=== PATIENT | male | born 1955 | race Caucasian/White ===

== ENCOUNTER 2023-09-11 11:09 | Inpatient (IN) ==
[2023-09-11] MEDS: SODIUM CHLORIDE 0.9% 1,000 ML IV SCH (13:04)
[2023-09-11 13:21] LABS: Albumin Globulin Ratio 1.4 (0.9-2); Albumin Level 4.1 gm/dl (3.4-5.0); BUN Creatinine Ratio 20.2 (10-20); Bilirubin,Total 1.2 mg/dl (0.2-1.0); Calcium 9.5 mg/dl (8.6-10.3); Creatinine Clr Calc Pharmacy 44.6 ml/min; Est GFR (African American) 97.5 ml/min; Est GFR (Non-African American) 84.2 ml/min; Globulin 2.9 gm/dl (2.5-4.0); Magnesium 2.3 mg/dl (1.7-2.4); Potassium 4.1 mmol/L (3.5-5.1)
--- NOTE | 2023-09-11 13:28 | XRay Report ---
XR chest 1V portable CLINICAL HISTORY: cough TECHNIQUE: Single frontal radiograph of the chest was obtained. Comparison: Comparison is made to chest radiograph 08/03/2008 FINDINGS: No lines and tubes are seen. The cardiomediastinal silhouette is normal. The lungs are clear. No evid ence of pleural effusion or pneumothorax. IMPRESSION: No acute abnormalities and in particular no radiographic evidence of pneumonia. ACT 112: Negative or not required by law. Electronically signed by: Dmitry Chandler M.D. 09/11/2023 1:27 PM
[2023-09-11 13:35] LABS: Thyroid Stimulating Hormone 1.25 uIu/ml (0.300-4.500)
[2023-09-11] MEDS: OPTIRAY 320 125ml IV ONE (13:45)
[2023-09-11 13:52] LABS: INR 1.1 (0.9-1.1); Prothrombin Time 11.7 Seconds (9.0-12.0)
[2023-09-11 13:59] LABS: Hematocrit (blood only) 15.4 % (42.0-52.0); Hemoglobin 3.4 g/dl (14.0-18.0); Mean Corpuscular Hemoglobin 13.5 pg (25.0-34.0); Mean Corpuscular Hgb Conc 22.1 g/dL (32.0-36.0); Mean Corpuscular Volume 61.1 fL (80.0-100.0); Mean Platelet Volume 9.2 fL (9.4-12.4); Nucleated RBC # (auto) 0.04 K/uL (0.00-0.12); Nucleated RBC % (auto) 1.2 %; Platelet Count 357 K/uL (130-400); RDW Coefficient of Variation 25.4 % (11.5-14.5); RDW Standard Deviation 54.4 fL (36.4-46.3); Red Blood Count 2.52 M/uL (4.70-6.10); White Blood Count 3.43 K/ul (4.8-10.8)
[2023-09-11 14:00] LABS: Anisocytosis Present; Basophils # (auto) 0.01 K/uL (0.00-0.20); Basophils % (auto) 0.3 %; Eosinophils # (auto) 0.04 K/uL (0.00-0.50); Eosinophils % (auto) 1.2 %; Hypochromasia Present; Immature Granulocytes # (auto) 0.01 K/uL (0.01-0.20); Immature Granulocytes % (auto) 0.3 %; Lymphocytes # (auto) 0.57 K/uL (1.20-3.40); Lymphocytes % (auto) 16.6 %; Microcytosis Present; Monocytes # (auto) 0.45 K/uL (0.11-0.59); Monocytes % (auto) 13.1 %; Neutrophils # (auto) 2.35 K/uL (1.40-6.50); Neutrophils % (auto) 68.5 %; Polychromasia 1+; Tear Drop Cells 1+
--- NOTE | 2023-09-11 14:01 | Emergency Department Note ---
Impression & Plan Anemia, Left-sided weakness ED Provider Note ED Provider Note NAME: DIANN ROGER AGE:67 SEX: Male : 1955 ARRIVES VIA: EMS INFORMANT: Patient ED PROVIDER(s): Reta Alves DO CHIEF COMPLAINT: Weakness HPI: This is a 67-year-old male presents emergency department due to increased weakness over the last 2 days. Patient does have a prior history of a stroke which left him with chronic left-sided weakness. He states he occasionally has spasticity on the left side additionally but can usually still get to a standing position and slowly walk and rely on his left leg to help hold him although he does have difficulty moving it while using his walker. He denies any recent fevers, chills, or illness. He denies any recent change in medication. No recent trauma. He states in the last 2 days his left leg is felt increasingly weak as though it would not hold him up and he was concerned he may fall. Patient does have home nursing that comes to check on him and help him. Patient stated his stroke stemmed from a carotid dissection. He does not take any ASA or anticoagulation. PAST MEDICAL HISTORY:See Below PAST SURGICAL HISTORY:See Below FAMILY HISTORY:See Below SOCIAL HISTORY:See Below HOME MEDICATIONS:See Below ALLERGIES:See Below VITALS:See Below PHYSICAL EXAMINATION: GENERAL: alert, well appearing, well nourished, no distress, non-toxic EYE EXAM: normal conjunctiva, PERRL and EOM's grossly intact OROPHARYNX: no exudate, no erythema, lips, buccal mucosa, and tongue normal and mucous membranes are moist NECK: supple, no nuchal rigidity, no adenopathy, non-tender LUNGS: Clear to auscultation. Normal chest wall mechanics, no w/r/r HEART: no murmurs, S1 normal and S2 normal ABDOMEN: abdomen soft, non-tender, normo-active bowel sounds, no masses, no rebound or guarding. BACK: Back is symmetrical on inspection and there is no deformity, no midline tenderness, no CVA tenderness. SKIN: no rashes, petechiae, orbruising; pallor UPPER EXTREMITIES: upper extremities are grossly normal. FROM, nml pulses b/l. LUE decreased strength testing and atrophy, particularly of the hand which is held in flexion LOWER EXTREMITIES: No pitting edema. FROM, nml pulses b/l. LLE mild atrophy and decreased strength testing NEURO EXAM: Normal sensorium, cranial nerves II-XII grossly intact, normal speech, no facial droop,nogross weakness of arms, no gross weakness of legs. Gross sensation intact. No ataxia. Vital Signs: reviewed and remarkable Differential Diagnosis: dehydration, stroke, anemia, hypoglycemia, hyponatremia, hypernatremia, urinary tract infection, pneumonia, bronchitis, sepsis, gastroenteritis, additional abdominal pathology, metabolic abnormalities, as well as others were considered MEDICAL DECISION MAKING: This is a 67 yo male who presents to the ER due to concern for acute exacerbation of his chronic left sided weakness following a stroke. He was afebrile and VS stable and was asymptomatic laying down. Labs drawn and sent, IV established, EKG and CXR performed and interpreted at bedside, and patient placed on telemetry. Due to hx of CVA, he was sent for CT/CTA additionally. He was noted to have profound anemia. He denied noting blood from any source including no melena and does not take asa, plavix, or anticoagulation. No hx of GI bleed. He was given IV protonix, IVF, and after discussion at bedside, blood consent signed and 3 units ordered. Case discussed with the hospitalist team severity of anemia and need for further inpatient evaluation/mgmt. CT/CTA without any acute findings. No elevation of BUN and no abdominal pain on exam. Patient verbalized understanding of all results and was in agreement with the plan. Consultation(s): 1530: Discussed with Dr. Marshall, [facility] hospitalist team, for additional evaluation and management. ER Treatment Provided: See below 1420: Updated patient at bedside on lab results. He denies any prior history of anemia. Again denies any hemoptysis, hematemesis, melena or hematochezia, or hematuria. Denies any trauma or injuries recently. Denies any history of GERD, PUD, colitis, or IBD. He states he has previously had a blood transfusion following an elbow fracture and did fine. Blood consent form signed at bedside. Diagnostics Interpreted By Me: -ECG: Normal sinus at 70, leftward axis, normal intervals, no acute ST/T wave changes -Cardiac Monitoring: An order was placed for continuous cardiac monitoring. The monitor shows a rate of 80 with normal sinus rhythm. -Laboratory studies: As stated above and show below. -Imaging studies: X-ray Chest: A single view study of the chest was reviewed and was negative for cardiomegaly, focal infiltrate, effusion, pulmonary edema, or wide mediastinum. Triage Nursing Note Reviewed Prior/Outside Records Reviewed Critical Care: Critical care of 44 min performed to assess and manage high likelihood of life- threatening anemia, involving labs and imaging performed with assessment to evaluate anemia diagnosis with frequent reassessment. This time includes bedside time, treatment discussions with patient/family/consultants, documentation time and excludes procedure time. Past Med/Surg History Social History Smoking Status: Never smoker Hx Alcohol Use: Yes Hx Substance Use: No Preferred Language: Citizen Of [place] Communication Ability: Effective Manager Apple Required: No Beliefs That Will Affect Care: None Current Living Situation: Alone Current Living Situation Comment: Patient relates general concern about falls, does not express specifics. Other Information That Helps Us Care for You: No Feels Safe at Home: Yes Safety Concerns: Feels Safe At This Time Assistive Devices: Cane and Wheelchair Allergies Allergies Allergy/AdvReac Type Severity Reaction Status Date / Time No Known Allergies Allergy Unknown Verified 10/28/07 23:20 Home Meds Home Medications Medication Instructions Recorded Confirmed clonazepam 0.5 mg tablet 0.25 mg PO HS ##0 08/03/08 09/11/23 Results & Data (ED) Vital Signs Vital Signs - 24 hr 09/11/23 11:16 09/11/23 11:26 09/11/23 14:00 Temperature 37.1 C Temperature Source Oral Pulse Rate 69 71 Pulse Rate [Apical] 68 Pulse Rhythm Pulse Strength Respiratory Rate 20 20 Blood Pressure 109/63 Blood Pressure [Right Arm] 108/62 Blood Pressure Mean 78 Blood Pressure Mean [Right Arm] 77 Pulse Oximetry 98 98 Oxygen Delivery Method Room Air Room Air Sepsis Recent Fever Within 48 Hours No Sepsis New/Unexplained Change in Mental Status No Sepsis Action Taken by Nursing No Action Required 09/11/23 15:28 09/11/23 16:30 09/11/23 16:48 Temperature 37.2 C 37.3 C Temperature Source Oral Oral Pulse Rate 69 78 76 Pulse Rate [Apical] Pulse Rhythm Regular Pulse Strength Normal Respiratory Rate 20 18 Blood Pressure 99/62 L 109/56 L Blood Pressure [Right Arm] Blood Pressure Mean 74 73 Blood Pressure Mean [Right Arm] Pulse Oximetry 96 98 Oxygen Delivery Method Sepsis Recent Fever Within 48 Hours Sepsis New/Unexplained Change in Mental Status Sepsis Action Taken by Nursing 09/11/23 16:49 09/11/23 17:00 Temperature 37.1 C Temperature Source Oral Pulse Rate 72 70 Pulse Rate [Apical] Pulse Rhythm Pulse Strength Respiratory Rate 18 20 Blood Pressure 109/56 L 106/59 L Blood Pressure [Right Arm] Blood Pressure Mean 73 74 Blood Pressure Mean [Right Arm] Pulse Oximetry 98 99 Oxygen Delivery Method Sepsis Recent Fever Within 48 Hours Sepsis New/Unexplained Change in Mental Status Sepsis Action Taken by Nursing Laboratory Data 09/12/23 03:17 09/12/23 03:17 Lab Results 09/11/23 09/11/23 09/11/23 Range/Units 11:23 14:34 15:26 WBC 3.43 L (4.8-10.8) K/ul RBC 2.52 L (4.70-6.10) M/uL Hgb 3.4 L* (14.0-18.0) g/dl Hct 15.4 L* (42.0-52.0) % MCV 61.1 L (80.0-100.0) fL MCH 13.5 L (25.0-34.0) pg MCHC 22.1 L (32.0-36.0) g/dL RDW Std Deviation 54.4 H (36.4-46.3) fL RDW Coeff of Deborah 25.4 H (11.5-14.5) % Plt Count 357 (130-400) K/uL MPV 9.2 L (9.4-12.4) fL Immature Gran % (Auto) 0.3 % Neut % (Auto) 68.5 % Lymph % (Auto) 16.6 % Dauphin % (Auto) 13.1 % Eos % (Auto) 1.2 % Baso % (Auto) 0.3 % Reticulocyte % (Auto) 2.57 H (0.50-2.00) % Neut # (Auto) 2.35 (1.40-6.50) K/uL Lymph # (Auto) 0.57 L (1.20-3.40) K/uL Dauphin # (Auto) 0.45 (0.11-0.59) K/uL Eos # (Auto) 0.04 (0.00-0.50) K/uL Baso # (Auto) 0.01 (0.00-0.20) K/uL Reticulocyte # 0.060 (0.020-0.100) 10^6/uL Immature Gran # (Auto) 0.01 (0.01-0.20) K/uL Absolute Nucleated RBC 0.04 (0.00-0.12) K/uL Nucleated RBC % (auto) 1.2 % Polychromasia 1+ Hypochromasia Present Anisocytosis Present Microcytosis Present Tear Drop Cells 1+ PT 11.7 (9.0-12.0) Seconds INR 1.1 (0.9-1.1) Sodium 141 (136-145) mmol/L Potassium 4.1 (3.5-5.1) mmol/L Chloride 110 H (98-107) mmol/L Carbon Dioxide 26 (21-32) mmol/L Anion Gap 5 (3-11) BUN 19 (6-23) mg/dl Creatinine 0.94 (0.6-1.4) mg/dl Est Cr Clr Drug Dosing 44.6 ml/min Est GFR ( Amer) 97.5 ml/min Est GFR (Non-Af Amer) 84.2 ml/min BUN/Creatinine Ratio 20.2 H (10-20) Glucose 96 (70-99(Fasting)) mg/dl Calcium 9.5 (8.6-10.3) mg/dl Magnesium 2.3 (1.7-2.4) mg/dl Iron 16 L (35-175) mcg/dl TIBC 464 H (250-450) mcg/dl Unsaturated IBC 448 H (155-355) mcg/dl Transferrin % Sat 3 L (20-50) % Ferritin 7.3 L (8-388) ng/ml Total Bilirubin 1.2 H (0.2-1.0) mg/dl AST 28 (13-39) U/L ALT 14 (7-52) U/L Alkaline Phosphatase 59 (34-104) U/L Troponin I High Sens 15.0 (0-20) pg/ml Total Protein 7.0 (6.0-8.3) gm/dl Albumin 4.1 (3.4-5.0) gm/dl Globulin 2.9 (2.5-4.0) gm/dl Albumin/Globulin Ratio 1.4 (0.9-2) Lipase 20 (11-82) U/L Vitamin B12 215 (180-914) pg/ml Folate 15.45 (>5.38) ng/ml TSH 1.250 (0.300-4.500) uIu/ml Blood Type A Positive Blood Type Recheck A Positive Antibody Screen NEGATIVE Crossmatch See Detail Administered Medications Clonazepam (Clonazepam 0.5 Mg Tab) 0.25 mg PO HS JOVANA Stop: 10/11/23 20:59 Last Admin: 09/12/23 20:13 Dose: 0.25 mg Documented By: Admin: 09/11/23 20:05 Dose: 0.25 mg Documented By: BRENTON Pantoprazole Sodium 40 mg/ (Syringe) 10 mls @ 5 mls/min IV DAILY@1100 JOVANA Stop: 10/12/23 10:59 Last Admin: 09/12/23 10:58 Dose: 5 mls/min Documented By: GABRIEL Discontinued Medications Furosemide (Furosemide Inj 20 Mg/2 Ml Vial) 20 mg IV ONE ONE Stop: 09/11/23 21:01 Last Admin: 09/12/23 01:50 Dose: 20 mg Documented By: BRENTON Sodium Chloride (Nss) 1,000 mls @ 125 mls/hr IV .Q8H JOVANA Stop: 10/11/23 12:59 Last Infusion: 09/12/23 19:54 Dose: 0 mls/hr Documented By: Infusion: 09/12/23 11:23 Dose: 0 mls/hr Documented By: Admin: 09/12/23 04:34 Dose: Not Given Documented By: Admin: 09/12/23 01:25 Dose: Not Given Documented By: Infusion: 09/11/23 19:15 Dose: 0 mls/hr Documented By: Admin: 09/11/23 13:04 Dose: 125 mls/hr Documented By: GUILLERMINA Pantoprazole Sodium 40 mg/ (Syringe) 10 mls @ 5 mls/min IV NOW ONE Stop: 09/11/23 14:27 Last Admin: 09/11/23 15:52 Dose: 5 mls/min Documented By: GUILLERMINA Calcium Gluconate 1,000 mg/ (Sodium Chloride) 60 mls @ 240 mls/hr IV NOW ONE Stop: 09/11/23 21:14 Last Infusion: 09/12/23 02:04 Dose: Infused Documented By: Admin: 09/12/23 01:49 Dose: 240 mls/hr Documented By: BRENTON Ioversol (Optiray 320 125ml) 112 ml IV ONCE ONE Stop: 09/11/23 13:45 Last Admin: 09/11/23 13:45 Dose: 112 ml Documented By: ROHIT Imaging Data Radiologist's Impression: Chest X-Ray 09/11/23 12:49 XR chest 1V portable CLINICAL HISTORY: cough TECHNIQUE: Single frontal radiograph of the chest was obtained. Comparison: Comparison is made to chest radiograph 08/03/2008 FINDINGS: No lines and tubes are seen. The cardiomediastinal silhouette is normal. The lungs are clear. No evidence of pleural effusion or pneumothorax. IMPRESSION: No acute abnormalities and in particular no radiographic evidence of pneumonia. ACT 112: Negative or not required by law. Electronically signed by: Dmitry Chandler M.D. 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 CT angiography of the head was performed following intravenous administration of iodinated contrast. Coronal and sagittal MIPS were obtained from the axial data set and were submitted for review. Automated dose lowering techniques and/or adjustment according to patient size were utilized for this examination. All measurements were calculated based on NASCET criteria. Comparison: Comparison is made to CT head 08/03/2008 FINDINGS: CT head: Areas of decreased attenuation are present in the periventricular and subcortical white matter bilaterally consistent with small vessel ischemic disease. Generalized cerebral atrophy with commensurate enlargement of the ventricles, sulci, and cisterns is also present. There is no acute intracranial hemorrhage or evidence of acute territorial infarction. No shift of the midline structures, mass effect, or extra-axial abnormalities are shown. Atherosclerotic calcifications are present in the intracranial segments of the internal carotid arteries. Encephalomalacia in the right frontal lobe is again seen with ex vacuo ventriculomegaly. CTA Head: The anterior and posterior cerebral circulations are patent. No hemodynamically significant stenosis, aneurysm, dissection, or arteriovenous malformation is shown. Prominence and mild deformity of the origin of the basilar artery is likely congenital and without hemodynamically significant stenosis. IMPRESSION: 1. No acute intracranial hemorrhage, evidence of acute territorial infarction, or other acute intracranial disease process. Chronic encephalomalacia from prior stroke. 2. No occlusion, hemodynamically significant stenosis, aneurysm, dissection, or arteriovenous malformation in the major intracranial arteries. Assessment of stenosis of the internal carotid arteries is based on NASCET criteria. ACT 112: Negative or not required by law. Electronically signed by: Dmitry Chandler M.D. 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 CT angiography of the head was performed following intravenous administration of iodinated contrast. Coronal and sagittal MIPS were obtained from the axial data set and were submitted for review. Automated dose lowering techniques and/or adjustment according to patient size were utilized for this examination. All measurements were calculated based on NASCET criteria. Comparison: Comparison is made to CT head 08/03/2008 FINDINGS: CT head: Areas of decreased attenuation are present in the periventricular and subcortical white matter bilaterally consistent with small vessel ischemic disease. Generalized cerebral atrophy with commensurate enlargement of the ventricles, sulci, and cisterns is also present. There is no acute intracranial hemorrhage or evidence of acute territorial infarction. No shift of the midline structures, mass effect, or extra-axial abnormalities are shown. Atherosclerotic calcifications are present in the intracranial segments of the internal carotid arteries. Encephalomalacia in the right frontal lobe is again seen with ex vacuo ventriculomegaly. CTA Head: The anterior and posterior cerebral circulations are patent. No hemodynamically significant stenosis, aneurysm, dissection, or arteriovenous malformation is shown. Prominence and mild deformity of the origin of the basilar artery is likely congenital and without hemodynamically significant stenosis. IMPRESSION: 1. No acute intracranial hemorrhage, evidence of acute territorial infarction, or other acute intracranial disease process. Chronic encephalomalacia from prior stroke. 2. No occlusion, hemodynamically significant stenosis, aneurysm, dissection, or arteriovenous malformation in the major intracranial arteries. Assessment of stenosis of the internal carotid arteries is based on NASCET criteria. ACT 112: Negative or not required by law. Electronically signed by: Dmitry Chandler M.D. 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 Acute weakness with stroke like symptoms COMPARISON STUDY: CT head and CTA head of same day, head CT 08/03/2008, CTA neck 11/05/2007 TECHNIQUE: Following the IV administration of 112 mL of Optiray, CT angiogram of the neck was performed from the aortic arch to the skull base. Images are reviewed in the axial, sagittal, and coronal planes. 3-D MIPS images are created and assessed. IV contrast was administered without complication. All measurements were calculated based on NASCET criteria. A dose lowering technique was utilized adhering to the principles of ALARA. CT DOSE: 1165.08 mGy.cm FINDINGS: Three-vessel morphology of the thoracic aortic arch. There is patency of the innominate and imaged subclavian arteries. The bilateral common and left internal carotid arteries are patent. Unchanged appearance of the chronic long segment high-grade stenosis/near occlusion involving majority of the right ICA with distal reconstitution of flow. Large chronic right MCA infarct/encephalomalacia with Wallerian degeneration redemonstrated. The vertebral arteries are codominant and widely patent. The basilar artery is patent. Lung apices are clear. Unremarkable soft tissues. There is nonspecific circumferential wall thickening of the esophagus with adjacent inflammatory stranding adjacent subcentimeter periesophageal lymph nodes. Polypoid mucosal thickening of the right maxillary sinus. Sphenoid sinus air-fluid levels suggestive of acute sinusitis. IMPRESSION: 1. Stable exam compared to the 11/05/2007 study with chronic lung segment high- grade stenosis/near occlusion of the right internal carotid artery, possibly from a chronic dissection. 2. Partially imaged encephalomalacia related to a large chronic right MCA infarct. 3. Nonspecific wall thickening of the esophagus may represent esophagitis. ACT 112: Negative or not required by law. The above report was generated using voice recognition software. It may contain grammatical, syntax or spelling errors. Electronically signed by: Jhony Trevino M.D. 09/11/2023 2:09 PM Discharge Plan Visit Data Chief Complaint: Leg Weakness, Bilateral Stated Complaint: weakness ED Provider: Reta Alves Discharge Problem: Anemia, Left-sided weakness Patient Disposition: Admitted As Inpatient Discharge Instructions Interventions: ED Discharge Assessment Last Done: 09/11/23 18:13
[2023-09-11 14:02] LABS: Adenovirus PCR Not Detected (NotDetected); Bordetella parapertussis PCR Not Detected (NotDetected); Bordetella pertussis PCR Not Detected (NotDetected); Chlamydia pneumoniae PCR Not Detected (NotDetected); Coronavirus 229E PCR Not Detected (NotDetected); Coronavirus CoV-2 (COVID19)PCR Not Detected (NotDetected); Coronavirus HKU1 PCR Not Detected (NotDetected); Coronavirus NL63 PCR Not Detected (NotDetected); Coronavirus OC43PCR Not Detected (NotDetected); Human Metapneumovirus PCR Not Detected (NotDetected); Influenza A PCR Not Detected (NotDetected); Influenza B PCR Not Detected (NotDetected); Mycoplasma pneumoniae PCR Not Detected (NotDetected); Parainfluenza Virus 1 PCR Not Detected (NotDetected); Parainfluenza Virus 2 PCR Not Detected (NotDetected); Parainfluenza Virus 3 PCR Not Detected (NotDetected); Parainfluenza Virus 4 PCR Not Detected (NotDetected); Respiratory Syncytial VirusPCR Not Detected (NotDetected); Rhinovirus/Enterovirus PCR Not Detected (NotDetected)
--- NOTE | 2023-09-11 14:10 | CT Scan Report ---
CT angio neck with con CLINICAL HISTORY: 67 years-old Male with incr weakness, hx cva from carotid dissection. Acute weak ness with stroke like symptoms COMPARISON STUDY: CT head and CTA head of same day, head CT 08/03/2008, CTA neck 11/05/2007 TECHNIQUE: F ollowing the IV administration of 112 mL of Optiray, CT angiogram of the neck was performed from the aortic arch to the skull base. Images are reviewed in the axial, sagittal, and coronal planes. 3-D NE PS images are created and assessed. IV contrast was administered without complication. All measuremen ts were calculated based on NASCET criteria. A dose lowering technique was utilized adhering to the principles of ALARA. CT DOSE: 1165.08 mGy.cm FINDINGS: Three-vessel morphology of the thoracic aortic arch. There is patency of the innominate and imaged ybarra bclavian arteries. The bilateral common and left internal carotid arteries are patent. Unchanged appe arance of the chronic long segment high-grade stenosis/near occlusion involving majority of the right ICA with distal reconstitution of flow. Large chronic right MCA infarct/encephalomalacia with Rodríguez antonio degeneration redemonstrated. The vertebral arteries are codominant and widely patent. The basilar artery is patent. Lung apices are clear. Unremarkable soft tissues. There is nonspecific circumferential wall thickenin g of the esophagus with adjacent inflammatory stranding adjacent subcentimeter periesophageal lymph n odes. Polypoid mucosal thickening of the right maxillary sinus. Sphenoid sinus air-fluid levels sugge stive of acute sinusitis. IMPRESSION: 1. Stable exam compared to the 11/05/2007 study with chronic lung segment high-grade stenosis/near occl usion of the right internal carotid artery, possibly from a chronic dissection. 2. Partially imaged encephalomalacia related to a large chronic right MCA infarct. 3. Nonspecific wall thickening of the esophagus may represent esophagitis. ACT 112: Negative or not required by law. The above report was generated using voice recognition software. It may contain grammatical, syntax o r spelling errors. Electronically signed by: Jhony Trevino M.D. 09/11/2023 2:09 PM
--- NOTE | 2023-09-11 14:11 | CT Scan Report ---
CT angio head w con, CT head/brain wo con CLINICAL HISTORY: incr weakness, hx cva from carotid dissection TECHNIQUE: Contiguous axial CT images of the head were acquired from the base of the skull to the nitesh bakari without intravenous contrast administration. CT angiography of the head was performed following intravenous administration of iodinated contrast. Coronal and sagittal MIPS were obtained from the ax ial data set and were submitted for review. Automated dose lowering techniques and/or adjustment acc ording to patient size were utilized for this examination. All measurements were calculated based on NASCET criteria. Comparison: Comparison is made to CT head 08/03/2008 FINDINGS: CT head: Areas of decreased attenuation are present in the periventricular and subcortical white [place] er bilaterally consistent with small vessel ischemic disease. Generalized cerebral atrophy with comme nsurate enlargement of the ventricles, sulci, and cisterns is also present. There is no acute intracr anial hemorrhage or evidence of acute territorial infarction. No shift of the midline structures, mas s effect, or extra-axial abnormalities are shown. Atherosclerotic calcifications are present in the intracranial segments of the internal carotid arteries. Encephalomalacia in the right frontal lobe is again seen with ex vacuo ventriculomegaly. CTA Head: The anterior and posterior cerebral circulations are patent. No hemodynamically significan t stenosis, aneurysm, dissection, or arteriovenous malformation is shown. Prominence and mild deformi ty of the origin of the basilar artery is likely congenital and without hemodynamically significant s tenosis. IMPRESSION: 1. No acute intracranial hemorrhage, evidence of acute territorial infarction, or other acute intrac ranial disease process. Chronic encephalomalacia from prior stroke. 2. No occlusion, hemodynamically significant stenosis, aneurysm, dissection, or arteriovenous malfor mation in the major intracranial arteries. Assessment of stenosis of the internal carotid arteries is based on NASCET criteria. ACT 112: Negative or not required by law. Electronically signed by: Dmitry Chandler M.D. 09/11/2023 2:10 PM
[2023-09-11] MEDS ORDERED: SODIUM CHLORIDE 0.9% 250 ML IV PRN (14:26)
--- NOTE | 2023-09-11 15:23 | History & Physical Report ---
Date of Service September 11, 2023 Assessment & Plan (1) Iron deficiency anemia: Plan: Generalized weakness and lightheadedness/chest palpitation with standing, with an acute worsening x 2 days Hgb 3.4 and Hct 15.4 on arrival Denies recent falls, trauma, blood in the urine or stool, or melena No signs of active bleeding on clinical exam Patient reports he is asymptomatic at rest, which likely indicates a gradual decline over time Hx of blood transfusion in 2018 Iron panel revealed severe WILVER: Ferritin 7.3, TIBC 464 3u pRBCS ordered/transfused in the ED Trend H&H q4h; first H&H to be drawn 30-40 minutes after the second blood transfusion Monitor for signs of TACO/TRALI such as increased oxygen demands or respiratory distress Will plan to give Lasix 20 mg IV after third unit transfused Will plan to give calcium gluconate 1 g IV Communicated with nursing staff Recommend Venofer infusion on a day that blood is not given While low suspicion for GI bleed, will continue Protonix 40 mg IV QAM for now A.m. CBC, BMP (2) Generalized weakness: Plan: Secondary to #1 PT/OT consulted; Left-side nonweightbearing (3) Hx of stroke without residual deficits: Plan: In 2007 Left-sided hemiparesis Head/neck imaging with no acute finding (large chronic right MCA infarct) No BP, IV, labs in the LUE (4) Leukocytopenia: Plan: Mild; WBC count 3.43 on arrival Recheck a.m. labs Plan Disposition: Admit to PCU telemetry DNR/DNI Gluten-free diet VTE PPx: SCDs History of Present Illness Chief Complaint: Increased fatigue, bilateral leg weakness Primary Care Provider: Zeb White MD Austin is a 67yo male with PMH of left-sided CVA. He presented for increased generalized weakness, lightheadedness, chest palpitations with standing, and difficulty with ambulation on 09/10. Symptoms have been worsening x 2 days. He does report that 2 days ago, while standing from the toilet, he had to sit back down repeatedly; he then lowered himself to the floor, and called a friend who brought him to the bed. No head strike. No LOC. Patient reported that he was having difficulty moving. He is also noted that recently when standing, he would have "spastic attacks" with heart palpitations and feeling like his body was becoming overheated. Patient's not currently on blood thinners. Only medication is clonazepam 0.25 mg at night. He denies any recent falls, trauma, or injuries. He denies blood in the urine or stool, or dark tarry stools. He does have a history of a stroke 16 years ago (on October 27, 2007) that left residual left-sided paralysis/weakness. Currently has home health care. He denies any new stroke symptoms such as slurred speech or facial droop. He does have a history of blood transfusions, with the last being in 2018 when he shattered his left elbow. He denies smoking, alcohol use, and tobacco use. 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 Vital stable at time admission. ED course: 3u pRBCs ordered, pending ROS: Patient endorses lightheadedness with rest, dizziness with standing, on-going L- sided body pain since stroke, chest palpitations when attempting to stand/walk Patient denies fever, chills, night-sweats, fainting, chest pain, SOB, cough, new stroke symptoms (such as facial droop or slurred speech), abdominal pain, N/V/D, changes in urinary / bowel habits, blood in urine/stool, melena, or new pain/N/T in arms or legs. Allergies Allergy/AdvReac Type Severity Reaction Status Date / Time No Known Allergies Allergy Unknown Verified 10/28/07 23:20 Home Medications Medication Instructions Recorded Confirmed Type clonazepam 0.5 mg tablet 0.25 mg PO ##0 08/03/08 09/11/23 History Past Med/Surg History Social History Smoking Status: Never smoker Preferred Language: [place] Feels Safe at Home: Yes Review of Systems Review of Systems: See HPI above Physical Exam Physical Exam: General: no acute distress; pleasant affect; well-spoken; non-toxic appearing; thin; cooperative; 90% on RA HEENT: normocephalic, atraumatic; no scleral icterus; PERRLA w/ EOMs intact; moist mucus membrane; vision and hearing grossly intact Neck: supple; no lymphadenopathy; trachea midline Skin: Significant pallor; no signs of bruising or active bleeding on clinical exam; warm, dry without signs of tenting; no cyanosis; no rashes, bruising, lesions, or erythema noted CV: chest wall NTP; RRR; S1/S2 normal; no murmurs/rubs/gallops; bounding pulses intact and symmetric at radial, DP, and PT Lungs: no acute respiratory distress; symmetrical chest wall expansion; clear breath sounds across all lung saab w/o adventitious sounds; no wheezing ABD: Soft, NTP; BS present; no rebound/guarding; no distention MSK: Left-sided upper and lower body paralysis; atrophy of muscles on the left side; no tics or fasciculations; no edema noted in the LEs b/l, nonerythematous Neuro: A&Ox3; normal mood and affect; fluent speech; no focal deficits; sensation grossly intact in the face bilaterally, no sensation in the left arm or leg Results & Data Results & Data Vital Signs (Past 12 Hours) Vital Signs Temp Pulse Pulse Resp BP BP Pulse Ox 09/11/23 14:00 68 20 108/62 98 09/11/23 11:26 37.1 C 71 20 109/63 98 09/11/23 11:16 69 O2 Del Method 09/11/23 14:00 Room Air 09/11/23 11:26 Room Air 09/11/23 11:16 Laboratory Results Abnormal lab results 09/11/23 09/11/23 Range/Units 11:23 14:34 WBC 3.43 L (4.8-10.8) K/ul RBC 2.52 L (4.70-6.10) M/uL Hgb 3.4 L* (14.0-18.0) g/dl Hct 15.4 L* (42.0-52.0) % MCV 61.1 L (80.0-100.0) fL MCH 13.5 L (25.0-34.0) pg MCHC 22.1 L (32.0-36.0) g/dL RDW Std Deviation 54.4 H (36.4-46.3) fL RDW Coeff of Deborah 25.4 H (11.5-14.5) % MPV 9.2 L (9.4-12.4) fL Lymph # (Auto) 0.57 L (1.20-3.40) K/uL Chloride 110 H (98-107) mmol/L BUN/Creatinine Ratio 20.2 H (10-20) Total Bilirubin 1.2 H (0.2-1.0) mg/dl Crossmatch See Detail Diagnostic Findings Chest X-Ray 09/11/23 12:49 XR chest 1V portable CLINICAL HISTORY: cough TECHNIQUE: Single frontal radiograph of the chest was obtained. Comparison: Comparison is made to chest radiograph 08/03/2008 FINDINGS: No lines and tubes are seen. The cardiomediastinal silhouette is normal. The lungs are clear. No evidence of pleural effusion or pneumothorax. IMPRESSION: No acute abnormalities and in particular no radiographic evidence of pneumonia. ACT 112: Negative or not required by law. Electronically signed by: Dmitry Chandler M.D. 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 CT angiography of the head was performed following intravenous administration of iodinated contrast. Coronal and sagittal MIPS were obtained from the axial data set and were submitted for review. Automated dose lowering techniques and/or adjustment according to patient size were utilized for this examination. All measurements were calculated based on NASCET criteria. Comparison: Comparison is made to CT head 08/03/2008 FINDINGS: CT head: Areas of decreased attenuation are present in the periventricular and subcortical white matter bilaterally consistent with small vessel ischemic disease. Generalized cerebral atrophy with commensurate enlargement of the ventricles, sulci, and cisterns is also present. There is no acute intracranial hemorrhage or evidence of acute territorial infarction. No shift of the midline structures, mass effect, or extra-axial abnormalities are shown. Atherosclerotic calcifications are present in the intracranial segments of the internal carotid arteries. Encephalomalacia in the right frontal lobe is again seen with ex vacuo ventriculomegaly. CTA Head: The anterior and posterior cerebral circulations are patent. No hemodynamically significant stenosis, aneurysm, dissection, or arteriovenous malformation is shown. Prominence and mild deformity of the origin of the basilar artery is likely congenital and without hemodynamically significant stenosis. IMPRESSION: 1. No acute intracranial hemorrhage, evidence of acute territorial infarction, or other acute intracranial disease process. Chronic encephalomalacia from prior stroke. 2. No occlusion, hemodynamically significant stenosis, aneurysm, dissection, or arteriovenous malformation in the major intracranial arteries. Assessment of stenosis of the internal carotid arteries is based on NASCET criteria. ACT 112: Negative or not required by law. Electronically signed by: Dmitry Chandler M.D. 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 CT angiography of the head was performed following intravenous administration of io dinated contrast. Coronal and sagittal MIPS were obtained from the axial data set and were submitted for review. Automated dose lowering techniques and/or adjustment according to patient size were utilized for this examination. All measurements were calculated based on NASCET criteria. Comparison: Comparison is made to CT head 08/03/2008 FINDINGS: CT head: Areas of decreased attenuation are present in the periventricular and subcortical white matter bilaterally consistent with small vessel ischemic disease. Generalized cerebral atrophy with commensurate enlargement of the ventricles, sulci, and cisterns is also present. There is no acute intracranial hemorrhage or evidence of acute territorial infarction. No shift of the midline structures, mass effect, or extra-axial abnormalities are shown. Atherosclerotic calcifications are present in the intracranial segments of the internal carotid arteries. Encephalomalacia in the right frontal lobe is again seen with ex vacuo ventriculomegaly. CTA Head: The anterior and posterior cerebral circulations are patent. No hemodynamically significant stenosis, aneurysm, dissection, or arteriovenous malformation is shown. Prominence and mild deformity of the origin of the basilar artery is likely congenital and without hemodynamically significant stenosis. IMPRESSION: 1. No acute intracranial hemorrhage, evidence of acute territorial infarction, or other acute intracranial disease process. Chronic encephalomalacia from prior stroke. 2. No occlusion, hemodynamically significant stenosis, aneurysm, dissection, or arteriovenous malformation in the major intracranial arteries. Assessment of stenosis of the internal carotid arteries is based on NASCET criteria. ACT 112: Negative or not required by law. Electronically signed by: Dmitry Chandler M.D. 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 Acute weakness with stroke like symptoms COMPARISON STUDY: CT head and CTA head of same day, head CT 08/03/2008, CTA neck 11/05/2007 TECHNIQUE: Following the IV administration of 112 mL of Optiray, CT angiogram of the neck was performed from the aortic arch to the skull base. Images are reviewed in the axial, sagittal, and coronal planes. 3-D MIPS images are created and assessed. IV contrast was administered without complication. All measurements were calculated based on NASCET criteria. A dose lowering technique was utilized adhering to the principles of ALARA. CT DOSE: 1165.08 mGy.cm FINDINGS: Three-vessel morphology of the thoracic aortic arch. There is patency of the innominate and imaged subclavian arteries. The bilateral common and left internal carotid arteries are patent. Unchanged appearance of the chronic long segment high-grade stenosis/near occlusion involving majority of the right ICA with distal reconstitution of flow. Large chronic right MCA infarct /encephalomalacia with Wallerian degeneration redemonstrated. The vertebral arteries are codominant and widely patent. The basilar artery is patent. Lung apices are clear. Unremarkable soft tissues. There is nonspecific circumferential wall thickening of the esophagus with adjacent inflammatory stranding adjacent subcentimeter periesophageal lymph nodes. Polypoid mucosal thickening of the right maxillary sinus. Sphenoid sinus air-fluid levels suggestive of acute sinusitis. IMPRESSION: 1. Stable exam compared to the 11/05/2007 study with chronic lung segment high- grade stenosis/near occlusion of the right internal carotid artery, possibly from a chronic dissection. 2. Partially imaged encephalomalacia related to a large chronic right MCA infarct. 3. Nonspecific wall thickening of the esophagus may represent esophagitis. ACT 112: Negative or not required by law. The above report was generated using voice recognition software. It may contain grammatical, syntax or spelling errors. Electronically signed by: Jhony Trevino M.D. 09/11/2023 2:09 PM ECG Additional Comments: EKG revealed NSR at 70 bpm; QTc 438 Code Status & VTE Plan Code Status DNR/DNI VTE Prophylaxis Plan VTE Prophylaxis will be ordered: Yes Supervising Physician Co-Signing Physician Notes Patient seen and examined, chart reviewed, case discussed with Clement Mix and I agree with the assessment and plan as above except as otherwise noted Labs and images reviewed Austin is a 67-year-old male with a past medical history of carotid dissection and CVA with residual left-sided deficits stable for the last 16 years who presents with increased weakness and exertional fatigue and was having trouble standing due to global weakness. He denies melena, hematochezia, hematemesis. Is not elevated and he has no history of GI bleeding. His hemoglobin on admission is 3.4. As he is minimally symptomatic and not tachycardic despite a hemoglobin of 3.4, this is all certainly chronic with downtrend over many weeks to months. He is profoundly macrocytic with an MCV of 61, is also leukopenic at 3.43. Platelet count is normal.At bedside has severe pallor. HR regular. Normotensive on arrival, borderline hypotensive on reassessment. No lightheadedness/dizziness. No chest pain. Chronic LUE/LLE strength and sensation deficits present. Austin presents with symptomatic anemia likely from chronic downtrend in hemoglobin. Patient will need colorectal cancer screening. Differential includes increased losses due to occult cancer/bleeding, production failure in the setting of bicytopenia, and nutritional deficiency/iron deficiency. Iron panel with transferrin saturation and ferritin are pending, B12/folate pending. Reticulocyte count pending. Patient has been ordered 3 units for transfusion with a estimated rise to approximately 6.4 posttransfusion. Recommend giving Lasix 20 mg after the first 2 units to lower risk of transfusion associated cardiopulmonary overload, in addition to 1 g of calcium gluconate. Follow H&H posttransfusion, and then trend every 6 hours for stability. Transfuse for h emoglobin less than 7 or acute symptoms. Labs consistent with severe iron deficiency. PT had been on vegetarian diet previously as well. pursue 300 mg x 3 course of Venofer however would not prescribe this on the same day that blood is being given. PPI has been given for some GERD like symptoms, although and absent of clinical bleeding send with normal BUN and again very stable heart rate and minimal symptoms despite hemoglobin of 3 low suspicion for acute upper GI bleed . will continue daily stress ppx, BID dosing not indicated. admitted to telemetry for monitoring due to profound anemia. Agree with assessment and management above. PG Care Time/CCT Total # of Minutes Spent Total Time Spent with Patient: Total time spent is greater than 50% in coordination of care (as documented) at patient's floor/unit and/or counseling patient: Coding [place] [address] INT INP/OBS CARE MIN Patient Type Established Medical Decision Making Moderate Complexity Diagnoses Iron deficiency anemia D50.9 Generalized weakness R53.1 Hx of stroke without residual deficits Z86.73 Leukocytopenia D72.819
[2023-09-11] MEDS: PANTOprazole 40 MG in SYRINGE 0 ML IV ONE (15:52)
[2023-09-11 15:54] LABS: Reticulocyte % 2.57 % (0.50-2.00)
[2023-09-11 16:19] LABS: Ferritin 7.3 ng/ml (8-388)
[2023-09-11 16:29] LABS: Folate (Folic Acid),Ser orPlas 15.45 ng/ml (>5.38)
[2023-09-11 17:20] LABS: Appearance Urine Clear (Clear); Bilirubin Urine Negative (Negative); Blood Urine Negative (Negative); Color Urine Yellow; Glucose Urine UA Negative (Negative); Ketones Urine Negative (Negative); Leukocyte Esterase Urine Negative (Negative); Nitrite Urine Negative (Negative); Protein Urine Negative (Negative); Specific Gravity Urine 1.026 (1.000-1.030); Urobilinogen Urine Negative (Negative); pH Urine 5.5 (4.5-7.5)
[2023-09-11] MEDS ORDERED: STAT IV/IM STA (18:43)
[2023-09-11] MEDS ORDERED: ACETAMINOPHEN 325 MG TAB PO PRN (18:43)
[2023-09-11] MEDS: clonazePAM 0.5 MG TAB PO SCH (20:05)
[2023-09-11 22:51] LABS: Hematocrit (blood only) 20.2 % (42.0-52.0); Hemoglobin 5.3 g/dl (14.0-18.0)
[2023-09-12] MEDS: CALCIUM GLUCONATE 10% 1,000 MG in SODIUM CHLOR 0.9% MINI-B 50 ML IV ONE (01:49)
[2023-09-12] MEDS: FUROSEMIDE INJ 20 MG/2 ML VIAL IV ONE (01:50)
[2023-09-12 04:07] LABS: Hematocrit (blood only) 26.5 % (42.0-52.0); Hemoglobin 7.4 g/dl (14.0-18.0)
[2023-09-12 04:20] LABS: BUN Creatinine Ratio 15.3 (10-20); Calcium 9.5 mg/dl (8.6-10.3); Creatinine Clr Calc Pharmacy 53.6 ml/min; Est GFR (African American) 74.1 ml/min; Est GFR (Non-African American) 63.9 ml/min; Magnesium 2.2 mg/dl (1.7-2.4)
--- NOTE | 2023-09-12 05:53 | Electrocardiogram Report ---
Test Reason : Blood Pressure : / mmHG Vent. Rate : 070 BPM Atrial Rate : 070 BPM P-R Int : 144 ms QRS Dur : 076 ms QT Int : 406 ms P-R-T Axes : 046 -40 028 degrees QTc Int : 438 ms Normal sinus rhythm Left axis deviation Abnormal ECG When compared with ECG of 03-AUG-2008 14:10, No significant change was found Confirmed by Dov Pena [id number]) on 09/12/2023 5:53:37 AM Referred By: REFERRED SELF Confirmed By:Dov Pena
--- NOTE | 2023-09-12 07:48 | Hospitalist Progress Note ---
Date of Service September 12, 2023 Assessment & Plan (1) Iron deficiency anemia: Plan: Generalized weakness and lightheadedness/chest palpitation with standing, with an acute worsening x 2 days Hgb 3.4 and Hct 15.4 on arrival, s/p 3 units prbc, severely microcytic, iron confirmed low Approproate rise in hgb after transfusion Denies blood in the urine or stool, or melena No signs of active bleeding on clinical exam Patient has never had a colonoscopy in his life has no symptoms of dyspepsia or upper GI symptoms Hx of blood transfusion in 2018 he feels at that time he was also from dietary restrictions of iron intake Iron panel revealed severe WILVER: Ferritin 7.3, TIBC 464 low suspicion for GI bleed,continue Protonix 40 mg IV QAM PT/OT consulted; Left-side limited weightbearing from previous stroke (2) Hx of stroke without residual deficits: Plan: In 2007 Left-sided hemiparesis Head/neck imaging with no acute finding (large chronic right MCA infarct) No BP, IV, labs in the LUE pt is typically not on any antiplatelet agents or statins (3) Leukocytopenia: Plan: Mild; WBC count 3.43 on arrival Recheck a.m. labs Plan DNR/DNI Gluten-free diet VTE PPx: SCDs Admission and Anticipated Discharge Date Admission Date: September 11, 2023 Subjective pt feels improved after transfusion but not yet back to his baseline. He is concerned his left side is weaker than usual for him. I offered to do another image of his brain likely an MRI he did not wish to pursue this at this time as he feels this is mostly from his anemia He is a gluten-free diet person and typically eats mostly vegetarian foods and is markedly iron deficient which could be dietary. He also has never had a screening colonoscopy in his life but notes no new changes in bowel habits size color or consistency or darkness of stools Physical Exam Physical Exam: Pleasant gentleman with baseline left hemiparesis Card exam is regular lungs are clear Abdomen is without tenderness there are no masses. Results & Data Results & Data Vital Signs (Past 12 Hours) Vital Signs Temp Pulse Pulse Resp BP BP Pulse Ox 09/12/23 04:22 98.2 F 68 18 114/67 96 09/12/23 01:47 98.6 F 68 20 111/69 99 09/12/23 01:47 98.6 F 68 20 111/69 99 09/12/23 00:58 99.3 F 68 20 112/62 100 09/11/23 23:58 98.8 F 66 20 114/64 98 09/11/23 23:28 99.3 F 64 18 108/64 97 09/11/23 23:13 99.3 F 65 20 114/71 99 09/11/23 22:55 99.1 F 64 18 102/54 L 97 09/11/23 22:00 67 09/11/23 21:37 99.0 F 68 18 100/59 L 95 09/11/23 21:11 99.1 F 69 18 103/52 L 97 09/11/23 20:11 99.3 F 74 18 103/64 96 O2 Del Method 09/12/23 04:22 Room Air 09/12/23 01:47 09/12/23 01:47 09/12/23 00:58 09/11/23 23:58 09/11/23 23:28 09/11/23 23:13 09/11/23 22:55 09/11/23 22:00 09/11/23 21:37 09/11/23 21:11 09/11/23 20:11 Laboratory Results Reviewed CBC reviewed chemistry PG Care Time/CCT Total # of Minutes Spent Total Time Spent with Patient: Total time spent is greater than 50% in coordination of care (as documented) at patient's floor/unit and/or counseling patient: Coding Level of Care Code 52547 SUB INP/OBS CARE 3/50MIN Diagnoses Iron deficiency anemia D50.9 Hx of stroke without residual deficits Z86.73 Leukocytopenia D72.819
[2023-09-12] MEDS: PANTOprazole 40 MG in SYRINGE 0 ML IV SCH (10:58)
[2023-09-13 08:25] LABS: BUN Creatinine Ratio 22.1 (10-20); Calcium 9.3 mg/dl (8.6-10.3); Creatinine Clr Calc Pharmacy 72.9 ml/min; Est GFR (African American) 104.7 ml/min; Est GFR (Non-African American) 90.4 ml/min; Potassium 3.7 mmol/L (3.5-5.1)
[2023-09-13 09:08] LABS: Basophils # (auto) 0.03 K/uL (0.00-0.20); Basophils % (auto) 0.5 %; Eosinophils # (auto) 0.13 K/uL (0.00-0.50); Eosinophils % (auto) 2.2 %; Hematocrit (blood only) 28.6 % (42.0-52.0); Hemoglobin 7.9 g/dl (14.0-18.0); Immature Granulocytes # (auto) 0.02 K/uL (0.01-0.20); Immature Granulocytes % (auto) 0.3 %; Lymphocytes # (auto) 0.59 K/uL (1.20-3.40); Lymphocytes % (auto) 9.8 %; Mean Corpuscular Hemoglobin 19.8 pg (25.0-34.0); Mean Corpuscular Hgb Conc 27.6 g/dL (32.0-36.0); Mean Corpuscular Volume 71.7 fL (80.0-100.0); Monocytes # (auto) 0.51 K/uL (0.11-0.59); Monocytes % (auto) 8.5 %; Neutrophils # (auto) 4.75 K/uL (1.40-6.50); Neutrophils % (auto) 78.7 %; Nucleated RBC # (auto) 0.04 K/uL (0.00-0.12); Nucleated RBC % (auto) 0.7 %; Platelet Count 265 K/uL (130-400); Platelet Estimate Normal (Normal); Polychromasia 1+; RDW Coefficient of Variation 29.6 % (11.5-14.5); RDW Standard Deviation 75.2 fL (36.4-46.3); Red Blood Count 3.99 M/uL (4.70-6.10); White Blood Count 6.03 K/ul (4.8-10.8)
[2023-09-13] MEDS: THIAMINE HCL 200 MG in SODIUM CHLORIDE 0.9% 50 ML IV ONE (12:53)
[2023-09-13] MEDS: IRON SUCROSE 300 MG in SODIUM CHLORIDE 0.9% 250 ML IV ONE (12:58)
--- NOTE | 2023-09-13 15:50 | Hospitalist Progress Note ---
Date of Service September 13, 2023 Assessment & Plan (1) Iron deficiency anemia: Plan: Generalized weakness and lightheadedness/chest palpitation with standing, with an acute worsening x 2 days Hgb 3.4 and Hct 15.4 on arrival, s/p 3 units prbc, severely microcytic, iron confirmed low Approproate rise in hgb after transfusion , additional venofer given will check B1 but start supplementation in case this is bi deficiency, will add b6, recent b12 is normal No signs of active bleeding on clinical exam Patient has never had a colonoscopy in his life has no symptoms of dyspepsia or upper GI symptoms Hx of blood transfusion in 2018 he feels at that time he was also from dietary restrictions of iron intake Iron panel revealed severe WILVER: Ferritin 7.3, TIBC 464 low suspicion for GI bleed,continue Protonix 40 mg convert dose to po 09/13/23 PT/OT consulted; Left-side limited weightbearing from previous stroke (2) Hx of stroke without residual deficits: Plan: In 2007 Left-sided hemiparesis Head/neck imaging with no acute finding (large chronic right MCA infarct) No BP, IV, labs in the LUE pt is typically not on any antiplatelet agents or statins, not interested in taking these (3) Leukocytopenia: Plan: resolved Plan DNR/DNI Gluten-free diet VTE PPx: SCDs Admission and Anticipated Discharge Date Admission Date: September 11, 2023 Subjective pt feels improved after transfusion hgb has remained stable, left sided hemiparesis subjectively not yet back to his baseline. I filemonian offered to do another image of his brain he does not wish to pursue He is a gluten-free diet person and typically eats mostly vegetarian foods and is markedly iron deficient which could be dietary. He also has never had a screening colonoscopy in his life but notes no new changes in bowel habits size color or consistency or darkness of stools Physical Exam Physical Exam: Pleasant gentleman with baseline left hemiparesis Card exam is regular lungs are clear Abdomen is without tenderness there are no masses. Results & Data Results & Data Vital Signs (Past 12 Hours) Vital Signs Temp Pulse Pulse Resp BP Pulse Ox O2 Del Method 09/13/23 14:00 67 09/13/23 10:46 98.6 F 77 19 105/65 97 Room Air 09/13/23 07:59 98.1 F 68 19 118/85 96 Room Air 09/13/23 06:00 70 Laboratory Results review cbc review chemistry PG Care Time/CCT Total # of Minutes Spent Total Time Spent with Patient: Total time spent is greater than 50% in coordination of care (as documented) at patient's floor/unit and/or counseling patient: Coding Level of Care Code 28980 SUB INP/OBS CARE 3/50MIN Diagnoses Iron deficiency anemia D50.9 Hx of stroke without residual deficits Z86.73 Leukocytopenia D72.819
[2023-09-14 07:42] LABS: BUN Creatinine Ratio 27.1 (10-20); Calcium 8.8 mg/dl (8.6-10.3); Creatinine Clr Calc Pharmacy 91.2 ml/min; Est GFR (Non-African American) 98.3 ml/min; Potassium 3.7 mmol/L (3.5-5.1)
[2023-09-14 07:48] LABS: Hematocrit (blood only) 26.1 % (42.0-52.0); Mean Corpuscular Hemoglobin 19.8 pg (25.0-34.0); Mean Corpuscular Hgb Conc 26.8 g/dL (32.0-36.0); Mean Corpuscular Volume 73.7 fL (80.0-100.0); Nucleated RBC # (auto) 0.04 K/uL (0.00-0.12); Nucleated RBC % (auto) 0.7 %; Platelet Count 280 K/uL (130-400); RDW Coefficient of Variation 30.9 % (11.5-14.5); RDW Standard Deviation 77.8 fL (36.4-46.3); Red Blood Count 3.54 M/uL (4.70-6.10)
[2023-09-14] MEDS ORDERED: SODIUM CHLORIDE 0.9% 250 ML IV PRN (08:13)
[2023-09-14 08:19] LABS: Anisocytosis Present; Basophils # (auto) 0.04 K/uL (0.00-0.20); Basophils % (auto) 0.7 %; Eosinophils # (auto) 0.16 K/uL (0.00-0.50); Eosinophils % (auto) 2.9 %; Hypochromasia Present; Immature Granulocytes # (auto) 0.04 K/uL (0.01-0.20); Immature Granulocytes % (auto) 0.7 %; Lymphocytes # (auto) 0.57 K/uL (1.20-3.40); Lymphocytes % (auto) 10.2 %; Microcytosis Present; Monocytes # (auto) 0.63 K/uL (0.11-0.59); Monocytes % (auto) 11.3 %; Neutrophils # (auto) 4.16 K/uL (1.40-6.50); Neutrophils % (auto) 74.2 %; Polychromasia 2+; Schistocytes 1+; Tear Drop Cells 1+
[2023-09-14] MEDS: PYRIDOXINE HCL 50 MG TAB PO SCH (08:41)
[2023-09-14] MEDS: THIAMINE HCL 100 MG TAB PO SCH (08:42)
[2023-09-14] MEDS: PANTOprazole 40 MG TAB PO SCH (09:38)
[2023-09-14] MEDS: IRON SUCROSE 300 MG in SODIUM CHLORIDE 0.9% 250 ML IV ONE (09:41)
[2023-09-14 12:10] LABS: Hematocrit (blood only) 30.1 % (42.0-52.0); Hemoglobin 8.3 g/dl (14.0-18.0)
--- NOTE | 2023-09-14 15:10 | Hospitalist Progress Note ---
Date of Service September 14, 2023 Assessment & Plan (1) Iron deficiency anemia: Plan: He received 3 units packed red blood cells for admission hemoglobin 3.4 with subsequent improvement to 7.0. He then received another packed red blood cell today, September 13, and hemoglobin has improved to 8.3. Will follow. No overt melena or hematochezia. Fecal occult blood is pending. (2) Hx of stroke without residual deficits: Plan: Chronic left hemiparesis. OT and PT ordered. (3) Leukocytopenia: Plan: POA. Resolved Plan To be determined. OT and PT assessments requested Admission and Anticipated Discharge Date Admission Date: September 11, 2023 Subjective Alert and oriented. He received 3 units packed red blood cells for admission hemoglobin of 3.4. Hemoglobin improved to 7.0. He was given 1 additional unit today, September 13 and hemoglobin improved to 8.3. Fecal occult blood ordered and pending. Parenteral iron replacement underway. OT and PT assessments have been requested. Hopefully, he can go home tomorrow, September 14 Review of Systems 2 Review of Systems: Constitutional-no fever or chills ENT-no blurred vision, no double vision, no epistaxis, no sore throat Respiratory-no cough, no wheezing, no shortness of breath Cardiac-no palpitations, no chest pain, no syncope GI-no nausea, vomiting, diarrhea, melena, hematochezia -no urinary retention, no urinary incontinence, no dysuria, no hematuria Musculoskeletal-no joint pain, no muscle tenderness Skin-no bruising, no rashes, no pruritus Neuro-chronic left hemiparesis from old CVA. Psych-no depression, no anxiety. He seems to be poorly motivated to help himself Physical Exam 2 Physical Exam: General-alert and oriented x3, no fever, no chills HEENT-head atraumatic and normocephalic, pupils equal and reactive to light, extraocular muscles intact Neck-no lymphadenopathy or thyromegaly, trachea midline Chest-clear to auscultation. No rales, wheezing or rhonchi Cardiac-regular rate and rhythm, normal S1 and S2 Abdomen-normal bowel sounds, no hepatosplenomegaly Extremities-no cyanosis, clubbing, or edema Neuro-chronic left hemiparesis from old CVA. Cranial nerves appear to be intact Psych-flat affect. Poor motivation Results & Data Results & Data Vital Signs (Past 12 Hours) Vital Signs Temp Pulse Pulse Resp BP BP Pulse Ox 09/14/23 11:18 37.5 C 73 18 100/62 96 09/14/23 11:18 73 18 100/62 96 09/14/23 10:18 37.1 C 81 18 114/64 97 09/14/23 09:48 37.1 C 79 18 105/63 97 09/14/23 09:33 37.2 C 79 18 109/63 97 09/14/23 09:30 37.2 C 79 18 109/63 97 09/14/23 09:27 37.3 C 78 18 107/67 97 09/14/23 09:13 36.9 C 80 17 107/67 96 09/14/23 07:29 09/14/23 07:18 36.6 C 73 18 109/64 96 09/14/23 07:00 76 O2 Del Method 09/14/23 11:18 09/14/23 11:18 09/14/23 10:18 09/14/23 09:48 09/14/23 09:33 09/14/23 09:30 09/14/23 09:27 Room Air 09/14/23 09:13 09/14/23 07:29 Room Air 09/14/23 07:18 Room Air 09/14/23 07:00 Laboratory Results 09/14/23 11:46 09/14/23 06:40 PG Care Time/CCT Total # of Minutes Spent Total Time Spent with Patient: Total time spent is greater than 50% in coordination of care (as documented) at patient's floor/unit and/or counseling patient: Coding Level of Care Code 17715 SUB INP/OBS CARE 3/50MIN Diagnoses Iron deficiency anemia D50.9 Hx of stroke without residual deficits Z86.73 Leukocytopenia D72.819
[2023-09-15 08:03] LABS: Hematocrit (blood only) 27.2 % (42.0-52.0); Hemoglobin 7.8 g/dl (14.0-18.0); Mean Corpuscular Hemoglobin 21.3 pg (25.0-34.0); Mean Corpuscular Hgb Conc 28.7 g/dL (32.0-36.0); Mean Corpuscular Volume 74.1 fL (80.0-100.0); Mean Platelet Volume 9.4 fL (9.4-12.4); Nucleated RBC # (auto) 0.02 K/uL (0.00-0.12); Nucleated RBC % (auto) 0.3 %; Platelet Count 280 K/uL (130-400); RDW Coefficient of Variation 30.8 % (11.5-14.5); RDW Standard Deviation 78.6 fL (36.4-46.3); Red Blood Count 3.67 M/uL (4.70-6.10); White Blood Count 5.73 K/ul (4.8-10.8)
[2023-09-15 08:28] LABS: BUN Creatinine Ratio 27.4 (10-20); Calcium 9.1 mg/dl (8.6-10.3); Creatinine Clr Calc Pharmacy 87.4 ml/min; Est GFR (Non-African American) 96.7 ml/min; Potassium 3.8 mmol/L (3.5-5.1)
[2023-09-15 08:38] LABS: Anisocytosis Present; Basophils # (auto) 0.06 K/uL (0.00-0.20); Eosinophils # (auto) 0.15 K/uL (0.00-0.50); Eosinophils % (auto) 2.6 %; Hypochromasia Present; Immature Granulocytes # (auto) 0.06 K/uL (0.01-0.20); Lymphocytes # (auto) 0.75 K/uL (1.20-3.40); Lymphocytes % (auto) 13.1 %; Microcytosis Present; Monocytes % (auto) 10.5 %; Neutrophils # (auto) 4.11 K/uL (1.40-6.50); Neutrophils % (auto) 71.8 %; Polychromasia 1+; Tear Drop Cells 1+
--- NOTE | 2023-09-15 14:01 | Gastrointestinal Consultation ---
Date of Consultation September 15, 2023 Assessment & Plan (1) Iron deficiency anemia: -Liquid diet today -NPO after midnight -Colonoscopy on 09/15 -Continue to monitor H/H Supervising Physician Co-Signing Physician Notes Agree with RICHARD Menchaca as above Interviewed and examined patient, and agree with above Abd: Soft, NT, ND, +BS Clear liquid diet, NPO after midnight Colonoscopy in AM History of Present Illness Reason for Consultation: Anemia Attending Physician: Braxton Fields MD History of Present Illness Patient is a 67 yo male with PMH of stroke who is currently hospitalized with iron deficiency anemia. He had an initial hemoglobin of 3.4 and an iron level was found to be 16. His H/H is now 7.8/27.2. He does not have any changes in his bowel habits. He notes infrequent heartburn and reflux. He has never had a colonoscopy. No hematemesis, hematochezia, or melena. He offers no further GI complaints. No pertinent family history. No NSAIDs/anticoagulation. No recent abdominal imaging. No overt GI bleeding. 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 Other Information That Helps Us Care for You: No Feels Safe at Home: Yes Safety Concerns: Feels Safe At This Time Assistive Devices: Cane and Wheelchair Review of Systems Constitutional: + fatigue; no fever and no chills Respiratory: no cough and no dyspnea Cardiovascular: no chest pain Physical Exam Constitutional: well developed Respiratory: normal respiratory effort Cardiovascular: Rate/Rhythm: regular rate Gastrointestinal (Abdomen): normal bowel sounds, soft, nontender, no hepatosplenomegaly Results & Data Vital Signs (Past 12 Hours) Vital Signs Temp Pulse Resp BP Pulse Ox O2 Del Method 09/15/23 08:17 36.7 C 69 16 102/55 L 94 Room Air PG Care Time/CCT Total # of Minutes Spent Total Time Spent with Patient: Total time spent is greater than 50% in coordination of care (as documented) at patient's floor/unit and/or counseling patient: Coding Level of Care Code 86771 INT INP/OBS CARE 3/75MIN Diagnoses Iron deficiency anemia D50.9
--- NOTE | 2023-09-15 16:42 | Hospitalist Progress Note ---
Date of Service September 15, 2023 Assessment & Plan (1) Iron deficiency anemia: Plan: He received 4 units packed red blood cells for admission hemoglobin 3.4 with subsequent improvement to 7.8. No overt melena or hematochezia. pt to be considered for colonoscopy (2) Hx of stroke without residual deficits: Plan: Chronic left hemiparesis. OT and PT ordered. Pt does not want to consider rehab concern for his ability to return home as has issues with feeling some change in left hemiparesis (3) Leukocytopenia: Plan: POA. Resolved Plan To be determined. OT and PT assessments requested Admission and Anticipated Discharge Date Admission Date: September 11, 2023 Subjective pt has no complaints did have another unit of blood for a total of 4 units now in agreement of colonoscopy Gi consult to arrange Physical Exam Physical Exam: Pleasant continues with baseline left hemiparesis Card exam is regular lungs are clear Abdomen is without tenderness there are no masses. Results & Data Results & Data Vital Signs (Past 12 Hours) Vital Signs Temp Pulse Resp BP Pulse Ox O2 Del Method 09/15/23 15:03 98.2 F 73 16 100/57 L 93 Room Air 09/15/23 08:17 98.1 F 69 16 102/55 L 94 Room Air Laboratory Results review cbc review chemistry PG Care Time/CCT Total # of Minutes Spent Total Time Spent with Patient: Total time spent is greater than 50% in coordination of care (as documented) at patient's floor/unit and/or counseling patient: Coding Level of Care Code 67208 SUB INP/OBS CARE 2/35MIN Diagnoses Iron deficiency anemia D50.9 Hx of stroke without residual deficits Z86.73 Leukocytopenia D72.819
--- NOTE | 2023-09-16 06:59 | Anesthesiology Consultation ---
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 Alfredo Fuentes, Height/Weight Height: 5 ft 10 in Weight: 62.1 kg Allergies Allergy/AdvReac Type Severity Reaction Status Date / Time No Known Allergies Allergy Unknown Verified 10/28/07 23:20 Medications Home Medications Medication Instructions Recorded Confirmed Last Taken clonazepam 0.5 mg tablet 0.25 mg PO HS ##0 08/03/08 09/11/23 Unknown Active Medications Generic Name Dose Route Start Last Admin Trade Name Freq PRN Reason Stop Dose Admin Clonazepam 0.25 mg 09/11/23 21:00 09/15/23 21:24 Clonazepam 0.5 Mg Tab PO 10/11/23 20:59 0.25 mg HS JOVANA Administration Pantoprazole Sodium 40 mg 09/14/23 09:00 09/15/23 07:51 Pantoprazole 40 Mg Tab PO 10/14/23 08:59 40 mg QAM JOVANA Administration Pyridoxine HCl 50 mg 09/14/23 09:00 09/15/23 07:51 Pyridoxine Hcl 50 Mg Tab PO 10/14/23 08:59 50 mg QAM JOVANA Administration Thiamine HCl 100 mg 09/14/23 09:00 09/15/23 07:51 Thiamine Hcl 100 Mg Tab PO 10/14/23 08:59 100 mg QAM JOVANA Administration Social History Smoking Status: Never smoker Hx Alcohol Use: Yes alcohol intake frequency: holidays/special occasions only Hx Substance Use: No Physical Exam Vital Signs Last Vital Signs Temp 99.7 F H 09/15/23 20:54 Pulse 89 09/15/23 20:54 Resp 18 09/15/23 20:54 BP 106/58 L 09/15/23 20:54 Pulse Ox 96 09/15/23 20:54 O2 Del Method Room Air 09/15/23 21:30 Testing Laboratory Results 09/15/23 07:14 09/15/23 07:14 PT 11.7 Seconds (9.0-12.0) 09/11/23 11:23 INR 1.1 (0.9-1.1) 09/11/23 11:23 Urine Color Yellow 09/11/23 Unknown Urine Appearance Clear (Clear) 09/11/23 Unknown Urine pH 5.5 (4.5-7.5) 09/11/23 Unknown Ur Specific [place] 1.026 (1.000-1.030) 09/11/23 Unknown Urine Protein Negative (Negative) 09/11/23 Unknown Urine Glucose (UA) Negative (Negative) 09/11/23 Unknown Urine Ketones Negative (Negative) 09/11/23 Unknown Urine Nitrite Negative (Negative) 09/11/23 Unknown Ur Leukocyte Esterase Negative (Negative) 09/11/23 Unknown Blood Type A Positive 09/11/23 14:34 Antibody Screen NEGATIVE 09/11/23 14:34 Electrocardiogram Date: 09/11/23 Normal sinus rhythm, rate 70 bpm Left axis deviation Abnormal ECG When compared with ECG of 03-AUG-2008 14:10, No significant change was found Confirmed by Dov Pena ([id number]) on 09/12/2023 5:53:37 AM Chest X-Ray Date: 09/11/23 IMPRESSION: No acute abnormalities and in particular no radiographic evidence of pneumonia.
[2023-09-16] MEDS: LAVAGE SOLUTION 4000ML PO SCH (07:20)
[2023-09-16 07:42] LABS: BUN Creatinine Ratio 23.2 (10-20); Calcium 8.8 mg/dl (8.6-10.3); Creatinine Clr Calc Pharmacy 92.5 ml/min; Est GFR (African American) 114.7 ml/min; Est GFR (Non-African American) 98.9 ml/min; Potassium 3.8 mmol/L (3.5-5.1)
[2023-09-16 08:49] LABS: Hematocrit (blood only) 28.1 % (42.0-52.0); Hemoglobin 7.8 g/dl (14.0-18.0); Mean Corpuscular Hemoglobin 21.5 pg (25.0-34.0); Mean Corpuscular Hgb Conc 27.8 g/dL (32.0-36.0); Mean Corpuscular Volume 77.6 fL (80.0-100.0); Mean Platelet Volume 9.2 fL (9.4-12.4); Platelet Count 268 K/uL (130-400); RDW Coefficient of Variation 32.4 % (11.5-14.5); RDW Standard Deviation 84.1 fL (36.4-46.3); Red Blood Count 3.62 M/uL (4.70-6.10); White Blood Count 7.83 K/ul (4.8-10.8)
[2023-09-16 08:50] LABS: Anisocytosis Present; Basophils # (auto) 0.06 K/uL (0.00-0.20); Basophils % (auto) 0.8 %; Eosinophils # (auto) 0.15 K/uL (0.00-0.50); Eosinophils % (auto) 1.9 %; Hypochromasia Present; Immature Granulocytes # (auto) 0.05 K/uL (0.01-0.20); Immature Granulocytes % (auto) 0.6 %; Lymphocytes # (auto) 0.63 K/uL (1.20-3.40); Microcytosis Present; Monocytes # (auto) 0.61 K/uL (0.11-0.59); Monocytes % (auto) 7.8 %; Neutrophils # (auto) 6.33 K/uL (1.40-6.50); Neutrophils % (auto) 80.9 %; Polychromasia 1+
[2023-09-16] MEDS: SODIUM CHLORIDE 0.9% 500 ML IV SCH (08:50)
--- NOTE | 2023-09-16 09:10 | Communication Note ---
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 His colonoscopy is cancelled for today. At this point, would advise patient move forward with outpatient colonoscopy for further evaluation of his iron deficiency anemia so he can arrange this at a time he wishes to be compliant with bowel preparation. Hospitalists can consider a CT abdomen/pelvis with po & IV contrast to assess for significant abnormalities (obvious masses/lesions).
--- NOTE | 2023-09-16 17:30 | Hospitalist Progress Note ---
Date of Service September 16, 2023 Assessment & Plan (1) Iron deficiency anemia: Plan: He received 4 units packed red blood cells for admission hemoglobin 3.4 with subsequent improvement to 7.8. No overt melena or hematochezia. pt to be considered for colonoscopy however he refused colonoscopy preparation therefore colonoscopy was canceled at this time (2) Hx of stroke without residual deficits: Plan: Chronic left hemiparesis. OT and PT ordered feel he benefit from some rehab but does not want to consider this.. concern for his ability to return home as has issues with feeling some change in left hemiparesis (3) Leukocytopenia: Plan: POA. Resolved Plan To be determined. OT and PT assessments recommend rehab or at least home health once return home Admission and Anticipated Discharge Date Admission Date: September 11, 2023 Subjective pt has no complaints, patient refused colonoscopy prep overnight then during my visit he initially agreed to taking 80 in the evening of the but then to get GI he once again refused colonoscopy prep. GI medicine is now going to request he seek outpatient colonoscopy Patient has some persistent alteration in left-sided hemiplegia feels unsure to go home at this time. Physical Exam Physical Exam: Pleasant continues with baseline left hemiparesis Card exam is regular lungs are clear Abdomen is without tenderness there are no masses. Results & Data Results & Data Vital Signs (Past 12 Hours) Vital Signs Temp Pulse Resp BP Pulse Ox O2 Del Method 09/16/23 15:00 98.6 F 65 16 105/55 L 96 Room Air 09/16/23 07:45 97.7 F 73 16 107/61 96 Room Air PG Care Time/CCT Total # of Minutes Spent Total Time Spent with Patient: Total time spent is greater than 50% in coordination of care (as documented) at patient's floor/unit and/or counseling patient: Coding Level of Care Code 60121 SUB INP/OBS CARE 2/35MIN Diagnoses Iron deficiency anemia D50.9 Hx of stroke without residual deficits Z86.73 Leukocytopenia D72.819
[2023-09-17 09:44] LABS: Hematocrit (blood only) 31.1 % (42.0-52.0); Hemoglobin 8.5 g/dl (14.0-18.0); Mean Corpuscular Hemoglobin 21.7 pg (25.0-34.0); Mean Corpuscular Hgb Conc 27.3 g/dL (32.0-36.0); Mean Corpuscular Volume 79.5 fL (80.0-100.0); Mean Platelet Volume 9.4 fL (9.4-12.4); Platelet Count 272 K/uL (130-400); Red Blood Count 3.91 M/uL (4.70-6.10); White Blood Count 4.37 K/ul (4.8-10.8)
[2023-09-17 09:46] LABS: Calcium 9.1 mg/dl (8.6-10.3); Creatinine Clr Calc Pharmacy 102.9 ml/min; Est GFR (African American) 119.8 ml/min; Est GFR (Non-African American) 103.4 ml/min; Potassium 4.1 mmol/L (3.5-5.1)
[2023-09-17 10:24] LABS: Anisocytosis Present; Basophils # (auto) 0.05 K/uL (0.00-0.20); Basophils % (auto) 1.1 %; Eosinophils # (auto) 0.15 K/uL (0.00-0.50); Eosinophils % (auto) 3.4 %; Hypochromasia Present; Immature Granulocytes # (auto) 0.02 K/uL (0.01-0.20); Immature Granulocytes % (auto) 0.5 %; Lymphocytes # (auto) 0.53 K/uL (1.20-3.40); Lymphocytes % (auto) 12.1 %; Monocytes # (auto) 0.33 K/uL (0.11-0.59); Monocytes % (auto) 7.6 %; Neutrophils # (auto) 3.29 K/uL (1.40-6.50); Neutrophils % (auto) 75.3 %; Polychromasia 3+; Tear Drop Cells 1+
--- NOTE | 2023-09-17 17:52 | Hospitalist Progress Note ---
Date of Service September 17, 2023 Assessment & Plan (1) Iron deficiency anemia: Plan: He received 4 units packed red blood cells for admission hemoglobin 3.4 with subsequent improvement to 7.8. No overt melena or hematochezia. pt to be considered for colonoscopy however he refused colonoscopy preparation therefore colonoscopy was canceled at this time (2) Hx of stroke without residual deficits: Plan: Chronic left hemiparesis. OT and PT ordered feel he benefit from some rehab but does not want to consider this.. concern for his ability to return home as has issues with feeling some change in left hemiparesis consider rehab placement (3) Leukocytopenia: Plan: POA. Resolved Plan To be determined. OT and PT assessments recommend rehab Admission and Anticipated Discharge Date Admission Date: September 11, 2023 Subjective pt has no complaints, patient refused colonoscopy prep 09/16/23 GI medicine is now going to request he seek outpatient colonoscopy Patient has some persistent alteration in left-sided hemiplegia feels unsure to go home at this time. we discussed that he may need rehab is agreeable to seek consideration from [facility] Physical Exam Physical Exam: Pleasant continues with baseline left hemiparesis Card exam is regular lungs are clear Abdomen is without tenderness there are no masses. Results & Data Results & Data Vital Signs (Past 12 Hours) Vital Signs Temp Pulse Resp BP Pulse Ox O2 Del Method 09/17/23 14:15 98.4 F 78 16 102/61 94 Room Air 09/17/23 07:30 98.2 F 66 17 130/78 97 Room Air Laboratory Results review cbc review chemistry PG Care Time/CCT Total # of Minutes Spent Total Time Spent with Patient: Total time spent is greater than 50% in coordination of care (as documented) at patient's floor/unit and/or counseling patient: Coding Level of Care Code 80413 SUB INP/OBS CARE 2/35MIN Diagnoses Iron deficiency anemia D50.9 Hx of stroke without residual deficits Z86.73 Leukocytopenia D72.819
[2023-09-18 16:16] LABS: Hematocrit (blood only) 29.7 % (42.0-52.0); Hemoglobin 8.2 g/dl (14.0-18.0); Mean Corpuscular Hgb Conc 27.6 g/dL (32.0-36.0); Mean Corpuscular Volume 79.8 fL (80.0-100.0); Mean Platelet Volume 9.2 fL (9.4-12.4); Platelet Count 300 K/uL (130-400); Red Blood Count 3.72 M/uL (4.70-6.10); White Blood Count 6.85 K/ul (4.8-10.8)
--- NOTE | 2023-09-18 21:47 | Hospitalist Progress Note ---
Date of Service September 18, 2023 Assessment & Plan (1) Iron deficiency anemia: Plan: He received 4 units packed red blood cells for admission hemoglobin 3.4 with subsequent improvement to 7.8. No overt melena or hematochezia. pt to be considered for colonoscopy however he refused colonoscopy preparation therefore colonoscopy was canceled at this time (2) Hx of stroke without residual deficits: Plan: Chronic left hemiparesis. OT and PT ordered feel he benefit from some rehab but does not want to consider this.. concern for his ability to return home as has issues with feeling some change in left hemiparesis consider rehab placement Patient refused discharge on 09/17 due to his residual stroke symptoms but is agreeable to discharge on 09/18 reviewed his labs on 09/17 (3) Leukocytopenia: Plan: POA. Resolved Plan To be determined. OT and PT assessments recommend rehab Admission and Anticipated Discharge Date Admission Date: September 11, 2023 Subjective Patient reports no new symptoms. Review of Systems Review of Systems: All systems reviewed & are unremarkable except as noted in HPI & below Physical Exam Physical Exam: Pleasant continues with baseline left hemiparesis Card exam is regular lungs are clear Abdomen is without tenderness there are no masses. Results & Data Results & Data Vital Signs (Past 12 Hours) Vital Signs Temp Pulse Resp BP BP Pulse Ox O2 Del Method 09/18/23 21:20 37.2 C 85 16 102/51 L 95 Room Air 09/18/23 14:12 37.0 C 76 16 110/65 96 Room Air PG Care Time/CCT Total # of Minutes Spent Total Time Spent with Patient: Total time spent is greater than 50% in coordination of care (as documented) at patient's floor/unit and/or counseling patient: Coding Level of Care Code 72461 SUB INP/OBS CARE 2/35MIN Diagnoses Iron deficiency anemia D50.9 Hx of stroke without residual deficits Z86.73 Leukocytopenia D72.819
[2023-09-18] MEDS: IBUPROFEN 600 MG TAB PO ONE (23:31)
[2023-09-19 07:35] LABS: Hematocrit (blood only) 28.3 % (42.0-52.0); Mean Corpuscular Hemoglobin 22.4 pg (25.0-34.0); Mean Corpuscular Hgb Conc 28.3 g/dL (32.0-36.0); Mean Corpuscular Volume 79.3 fL (80.0-100.0); Mean Platelet Volume 9.6 fL (9.4-12.4); Platelet Count 284 K/uL (130-400); Red Blood Count 3.57 M/uL (4.70-6.10); White Blood Count 3.59 K/ul (4.8-10.8)
[2023-09-19 07:44] LABS: Albumin Level 3.2 gm/dl (3.4-5.0); BUN Creatinine Ratio 26.5 (10-20); Bilirubin Direct 0.1 mg/dl (0-0.2); Bilirubin,Total 0.5 mg/dl (0.2-1.0); Calcium 8.7 mg/dl (8.6-10.3); Creatinine Clr Calc Pharmacy 93.9 ml/min; Est GFR (African American) 115.3 ml/min; Est GFR (Non-African American) 99.5 ml/min; Potassium 3.9 mmol/L (3.5-5.1); Total Protein 5.7 gm/dl (6.0-8.3)
--- NOTE | 2023-09-19 10:32 | Discharge Summary ---
Date of Service September 19, 2023 Admission HPI Per Admitting Provider Austin is a 67yo male with PMH of left-sided CVA. He presented for increased generalized weakness, lightheadedness, chest palpitations with standing, and difficulty with ambulation on 09/10. Symptoms have been worsening x 2 days. He does report that 2 days ago, while standing from the toilet, he had to sit back down repeatedly; he then lowered himself to the floor, and called a friend who brought him to the bed. No head strike. No LOC. Patient reported that he was having difficulty moving. He is also noted that recently when standing, he would have "spastic attacks" with heart palpitations and feeling like his body was becoming overheated. Patient's not currently on blood thinners. Only medication is clonazepam 0.25 mg at night. He denies any recent falls, trauma, or injuries. He denies blood in the urine or stool, or dark tarry stools. He does have a history of a stroke 16 years ago (on October 27, 2007) that left residual left-sided paralysis/weakness. Currently has home health care. He denies any new stroke symptoms such as slurred speech or facial droop. He does have a history of blood transfusions, with the last being in 2018 when he shattered his left elbow. He denies smoking, alcohol use, and tobacco use. 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 Vital stable at time admission. ED course: 3u pRBCs ordered, pending ROS: Patient endorses lightheadedness with rest, dizziness with standing, on-going L- sided body pain since stroke, chest palpitations when attempting to stand/walk Patient denies fever, chills, night-sweats, fainting, chest pain, SOB, cough, new stroke symptoms (such as facial droop or slurred speech), abdominal pain, N/V/D, changes in urinary / bowel habits, blood in urine/stool, melena, or new pain/N/T in arms or legs. Principal Diagnosis iron def. anemia Discharge Exam Pleasant continues with baseline left hemiparesis Card exam is regular lungs are clear Abdomen is without tenderness there are no masses. Discharge Data Allergies Allergy/AdvReac Type Severity Reaction Status Date / Time No Known Allergies Allergy Unknown Verified 10/28/07 23:20 Consultations 09/15/23 13:47 Consult Gastroenterology Routine Procedures Performed Operation Date: 09/16/23 16:30 <No data on this case meets the specified criteria> Ordered Studies 09/11/23 12:49 CT angio head w con Stat CT angio neck with con Stat CT head/brain wo con Stat Hospital Course (1) Iron deficiency anemia: Patient was admitted with symptoms of anemi, likely GI source given iron studies compatibile with iron def. anemia. He received 4 units packed red blood cells for admission hemoglobin 3.4 with subsequent improvement to 7.8. No overt melena or hematochezia. pt to be considered for colonoscopy however he refused colonoscopy preparation therefore colonoscopy was canceled at this time will be discharged on supplemental iron. recommend rechecking blood count in about one week. Patient will be discharged to rehab. (2) Hx of stroke without residual deficits: Chronic left hemiparesis. OT and PT ordered feel he benefit from some rehab but does not want to consider this.. concern for his ability to return home as has issues with feeling some change in left hemiparesis consider rehab placement Patient refused discharge on 09/17 due to his residual stroke symptoms but is agreeable to discharge on 09/18 reviewed his labs on 09/17 (3) Leukocytopenia: POA. Resolved Total Time Total Time Spent Total Time Spent (In Minutes): 32 Discharge Plan Discharge Items Patient Disposition: Transfer Residential Fac Reason For Visit: GENERALIZED WEAKNESS Discharge Diagnosis: weakness Activity: Resume your previous activity Non-emergency contact: Primary Care Provider Call non-emergency contact if: you have any medication questions Follow-up/Referrals: Zeb White MD [Primary Care Provider] - Diet: Gluten Free Addtl Attending Provider Instructions: recommend followup with GI for outpatient colonoscopy. will recommend you continue on iron supplements: Friday and Friday. Friday and Friday. recommend rechecking hemoglobin in 5 days. Pending Studies at Discharge: No Stand-Alone Forms: My [email or web address] Skilled Items Patient informed of condition?: Yes DNR: No Discharge Level of Care: Skilled Communicable Disease: No Discharge Prognosis: Stable Lines: None Urinary Catheter: No Medications and DC Order Prescriptions: New pantoprazole 40 mg Tablet,Delayed Release (Dr/Ec) 40 mg PO QAM Qty: 30 0RF pyridoxine (vitamin B6) [Vitamin B-6] 50 mg Tablet 50 mg PO QAM Qty: 30 0RF thiamine HCl (vitamin B1) 100 mg Tablet 100 mg PO QAM Qty: 30 0RF ferrous sulfate 325 mg (65 mg iron) tablet 325 mg PO MOWEFR Qty: 15 0RF Continued clonazepam 0.5 mg Tablet 0.25 mg PO HS Qty: 0 Discharge Orders: Discharge Order (Routine); Ordered 09/19/23 Ordered By: Valentin Pearl/Other Patient Handouts: Anemia Admission Data Admit Date/Time: 09/11/23 15:54 Attending Provider: Valentin Thakkar Admit Provider: Low Welch Primary Care Provider: Zeb White Other Providers: Demario Fuentes; [place],[facility] Other Interventions: Discharge Summary Assessment (RN) Last Done: 09/19/23 10:24 Coding Level of Care Code 56968 INP/OBS DISCH >30 MIN Diagnoses Iron deficiency anemia D50.9 Hx of stroke without residual deficits Z86.73 Leukocytopenia D72.819
[2023-09-19] MEDS: FERROUS SULFATE 325 MG TAB PO ONE (10:38)
== END 2023-09-19 11:13 | DRG 812 ==
LOC: ED 11:09 → SUATTDRO 15:54 → 2S 15:54 → 3W 09-14 18:19